=== PATIENT | female | born 1980 | race Two or more races ===

== ENCOUNTER → 2016-10-29 | Outpatient (REF) | payer OTHER ==
[~2016-10-29] MED LIST: TOPA1TAB PO
[2016-10-29 11:53] LABS: FREE T4 1.06 NG/DL (0.76-1.46)
== END ==
LOC: M SFHCLERA 08:16
PROVIDERS: ATTEND Family Medicine
DX: Z13.29 Encounter for screening for other suspected endocrine disorder (principal); Z13.1 Encounter for screening for diabetes mellitus; Z13.220 Encounter for screening for lipoid disorders

== ENCOUNTER → 2016-11-17 | Outpatient (CLI) | payer OTHER ==
--- NOTE | 2016-11-17 08:25 | REP ---
MRI BRAIN WITHOUT CONTRAST: HISTORY: Migraine headaches. There are no areas of abnormal signal intensity in the brain. There is no intraparenchymal hemorrhage, infarct, mass or midline shift. The ventricular system is normal in appearance. There is no extracerebral collection. The sinuses are clear. IMPRESSION: There is no intracranial lesion. Signed by Marcus Alvares MD 11/17/2016 08:30 A
== END ==
LOC: M RAD 06:44
PROVIDERS: ATTEND Family Medicine
DX: G43.009 Migraine without aura, not intractable, without status migrainosus (principal)

== ENCOUNTER → 2016-12-10 | Outpatient (CLI) | payer OTHER ==
--- NOTE | 2016-12-11 14:29 | REP ---
Clinical: Abnormal uterine bleeding. Technique: Transabdominal pelvic ultrasound followed by transvaginal examination for better evaluation of the endometrium and adnexa with color Doppler evaluation of the ovaries. Comparison: None. Findings: Bladder is unremarkable and measures 13.1 x 10.4 x 10.0 cm. Anteverted retroflexed uterus measures 8.7 x 5.1 x 6.3 cm. The myometrium appears heterogeneous but without focal abnormality identified. Endometrial complex measures 16 mm thickness and should be correlated with menstrual cycle. A 4.0 x 4.5 x 3.8 cm left adnexal mass with adjacent small amount of free fluid is appreciated and may reflect exophytic/subserosal fibroid versus true pelvic lesion. Bilateral ovaries are otherwise normal in appearance and vascularity without torsion. Left ovary measures 3.2 x 1.7 x 2.9 cm; venous flow noted. Right ovary measures 2.6 x 1.9 x 2.4 cm; RI = 0.36. Impression: 1. Homogeneously thickened endometrial complex may reflect hemorrhagic debris and possibly related to menstrual cycle. 2. 4.5 cm mass lesion in the left vanita pelvis separate from the normal appearing left ovary. Differential diagnosis includes exophytic left uterine fibroid versus true mass lesion. 3. In light of the above-mentioned findings follow-up examination in 4-6 weeks may be warranted. Signed by Calvin Dougherty MD 12/10/2016 09:35 P
== END ==
LOC: M LRY 13:47
PROVIDERS: ATTEND Family Medicine
DX: N93.9 Abnormal uterine and vaginal bleeding, unspecified (principal)

== ENCOUNTER → 2017-01-01 | Outpatient (CLI) | payer OTHER ==
--- NOTE | 2017-01-01 10:21 | REP ---
Pelvic ultrasound including transabdominal, endovaginal and Doppler ultrasound assessment: Comparison is a 2016. On the comparison study a mass-like density was identified separate from the ovary in the left adnexa. On this study today this same mass like density is identified measuring 3.8 x 2.8 x 3.1 cm (previously 4.0 x 4.5 x 3.8 cm). As previously. I cannot determine if this is a pelvic mass, separate from the ovary or a uterine fibroid by ultrasound. Therefore, I would recommend pelvic MRI for further evaluation of this pelvic mass. The uterus is anteverted and normal size measuring 4 x 4.6 x 6.3 cm. The endometrium is upper normal size measuring 80 mm thickness. And has a homogeneous echo pattern. The right ovary is normal size measuring 3.5 x 2.3 x 3.4 cm. There is no right ovarian mass or cyst. The left ovary is normal size measuring 3.4 x 2.8 x 2.7 cm. There is a 2.5 cm left ovarian cyst. The cyst demonstrates no Doppler color flow or Doppler waveforms with Doppler ultrasound. Balloon There is no free fluid in the pelvis. Impression: There is a mass-like density in the left adnexa, separate from the ovary, similar to the comparison ultrasound. By ultrasound we unable to determine whether this is a fibroid or pelvic mass of other etiology, similar to the prior study. Therefore, I would recommend pelvic MRI for further evaluation of this mass. Signed by Ken Hanley MD 01/01/2017 10:13 A
== END ==
LOC: M LRY 08:29
PROVIDERS: ATTEND Family Medicine
DX: D25.9 Leiomyoma of uterus, unspecified (principal)

== ENCOUNTER 2017-02-26 09:56 | Day surgery (SDC) | payer OTHER ==
[~2017-02-26] VITALS: Ht 166.4 cm; Wt 95.7 kg
[2017-02-26] MEDS ORDERED: LR 1,000 ML IV ONE ×2 (10:15→11:00)
[2017-02-26] MEDS ORDERED: CENTTAB36 PO (10:23)
[2017-02-26] MEDS ORDERED: SCOPOLAMINE 1.5 MG TRANSDERMAL As Ordered ONE (10:31)
[2017-02-26 10:41] LABS: MEAN CORPUSCULAR HEMOGLOBIN 29.7 pg (27.0-33.0); PLATELET COUNT, AUTOMATED 442 10^3/uL (150-450); RED CELL DISTRIBUTION WIDTH 12.9 % (11.5-14.5)
[2017-02-26] MEDS ORDERED: SCOPOLAMINE 1.5 MG TRANSDERMAL TOP ONE (11:00)
[2017-02-26 11:06] LABS: CONTROL LINE HCG INT CTR LINE PRESENT
[2017-02-26] MEDS ORDERED: ROCURONIUM BROMIDE 50 MG/5 ML VIAL/SYRINGE As Ordered ONE ×2 (11:25→13:53)
[2017-02-26] MEDS ORDERED: PROPOFOL 200 MG/20 ML VIAL As Ordered ONE (11:25)
[2017-02-26] MEDS ORDERED: LIDOCAINE 2% INJ 100 MG/5 ML SDV (FOR ANES.) As Ordered ONE (11:25)
[2017-02-26] MEDS ORDERED: fentaNYL 250 MCG/5 ML INJECTION (J3010) As Ordered ONE (11:25)
[2017-02-26] MEDS ORDERED: MIDAZOLAM INJ 2 MG/2 ML VIAL (J2250) As Ordered ONE (11:26)
[2017-02-26] MEDS ORDERED: BUPIVACAINE HCL 0.25% 30 ML VIAL As Ordered ONE (11:56)
[2017-02-26] MEDS ORDERED: METHYLENE BLUE 0.5% (5MG/ML) 10 ML AMP (PROVAYBLUE)(Q9968 PER 1MG) As Ordered ONE (11:56)
[2017-02-26] MEDS ORDERED: dexameTHASONE 4 MG/ML 1ML VIAL (J1100) As Ordered ONE (12:00)
[2017-02-26] MEDS ORDERED: NEOSTIGMINE 10 MG/10 ML VIAL (J2710) As Ordered ONE (12:23)
[2017-02-26] MEDS ORDERED: GLYCOPYRROLATE INJ 0.2 MG/ML 2 ML VIAL As Ordered ONE (12:23)
[2017-02-26] MEDS ORDERED: ONDANSETRON 4MG/2ML VIAL (J2405) As Ordered ONE (12:23)
[2017-02-26] MEDS ORDERED: HYDROmorphone HCL 2 MG/ML 1ML VIAL (J1170) As Ordered ONE (12:23)
[2017-02-26] MEDS ORDERED: ePHEDrine SULFATE 25 MG/5 ML(5MG/ML) SYRINGE As Ordered ONE (12:38)
[2017-02-26] MEDS ORDERED: SUCCINYLCHOLINE 100 MG/5 ML SYRINGE (J0330) As Ordered ONE (13:49)
[2017-02-26] MEDS ORDERED: LR 1,000 ML IV SCH ×2 (14:30→14:45)
[2017-02-26] MEDS ORDERED: ONDANSETRON 4MG/2ML VIAL (J2405) IV PRN (14:45)
[2017-02-26] MEDS: MEPERIDINE INJ 25 MG/ML VIAL (J2175) IV PRN ×2 (14:50→14:55)
[2017-02-26] MEDS: PERCOCET 5MG/325MG TAB PO PRN ×2 (14:55→15:25)
[2017-02-26] MEDS: fentaNYL 100 MCG/2 ML INJECTION (J3010) IV PRN ×4 (15:00→15:15)
[2017-02-26] MEDS ORDERED: ceFAZolin 1GM INJ (J0690) As Ordered ONE (15:09)
[2017-02-26 16:35] VITALS: BP 124/64
--- NOTE | 2017-02-26 19:01 | RO ---
DATE OF PROCEDURE: 02/26/2017 PREOPERATIVE DIAGNOSES: 1. Abnormal uterine bleeding. 2. Chronic pelvic pain, predominantly left side. 3. Infertility. 4. Pelvic mass on the left side approximately 4 cm per pelvic ultrasound. POSTOPERATIVE DIAGNOSES: 1. Abnormal uterine bleeding. 2. Chronic pelvic predominantly left side. 3. Infertility. 4. Pelvic mass on the left side approximately 4 cm per pelvic ultrasound. (Subserosal pedunculated leiomyoma.) PROCEDURE PERFORMED: 1. Laparoscopic myomectomy. 2. Diagnostic hysteroscopy, dilation and curettage (D and C). 3. Chromopertubation. SURGEON: Dr. Kostas Gurrola DO ART PSYCHOTHERAPIST: Dr. Katharina Arreola MD ANESTHESIA: General endotracheal. SPECIMENS TO PATHOLOGY: 1. Uterine leiomyomas, 4 cm and less than 1 cm in greatest dimension. 2. Endometrial curettings. ESTIMATED BLOOD LOSS: 20 mL. FLUIDS REPLACED: 2500 mL of lactated Ringer's. DRAINS: Spaulding catheter. URINE OUTPUT: 300 mL. COMPLICATIONS: None. PREOPERATIVE ANTIBIOTICS: None indicated. INTRAOPERATIVE FINDINGS: Left subserosal pedunculated fibroid located on the left side of the uterine fundus, approximately 4 cm in greatest dimension. The pedunculated stalk was less than 1 cm thick. Hysteroscopic findings revealed a normal endometrial cavity without any space-occupying masses. No fill and spill with the chromopertubation; however, this might have been due to a malfunction of the ZUMI uterine manipulator's catheter. INDICATION: The patient is a 36-year-old with infertility, chronic pelvic pain and abnormal uterine bleeding. She was counseled regarding the planned procedure, which is an operative laparoscopy for suspected left-sided pelvic mass per ultrasound, a diagnostic hysteroscopy and a chromopertubation to assess the status of the fallopian tubes. DESCRIPTION OF PROCEDURE: The patient was counseled and consented on the risks, benefits, indications and alternatives of the procedure. Informed consent was obtained. She was taken to the operating room with an IV running, and placed on the operating table in the dorsal supine position. General anesthesia was administered, and the airway secured without any difficulty. She was placed in the low lithotomy position. She was prepared and draped in the normal sterile fashion. A time-out was performed per protocol. Spaulding catheter was placed under sterile conditions. Sterile speculum placed with good visualization of the cervix. The anterior lip of the cervix was grasped with single-tooth tenaculum and downward traction was applied. The cervix was then sequentially dilated with Joey dilators. The ZUMI uterine manipulator was placed transcervically into the intrauterine cavity without any difficulty. Sterile speculum was removed. Attention was turned to the abdomen after glove switch. A 10 mm umbilical incision was made was the #11 blade after injection of the 0.25% Marcaine. Through this incision, the Veress needle was placed into the intraperitoneal cavity. Intraperitoneal cavity was confirmed with ease of flow of normal saline , negative return on aspiration and a positive drop test. The opening pressure was 7 mmHg. The abdomen was insufflated with 2 liters of gas. The Veress needle was removed. The size 10 Xcel laparoscopic trocar was placed under direct visualization with successful placement in the intraperitoneal cavity. No incidental bleeding or injury was noted. The patient was then placed into steep Trendelenburg. Two additional laparoscopic port sites were placed, each in the lower quadrant of the right and left abdomen, each approximately 5 mm incisions. Through these 5 mm incisions, the Xcel laparoscopic trocars were placed under direct visualization without any difficulty. Inspection of the abdomen was performed with the findings noted above. The dominant pedunculated mass was also attached to a smaller subcentimeter leiomyoma, which was also just lateral to the stalk of the larger mass. The LigaSure device was used to come across the stalk. It was sequentially clamped, coagulated and transected. Excellent hemostasis was noted , and the mass was removed in its entirety and intact. The smaller 1 cm fibroid just lateral to this mass was grasped and elevated, and the stalk was clamped, coagulated and transected. The smaller mass was brought through the 5 mm laparoscopic port and sent to pathology for final review. The larger mass placed in the anterior cul-de-sac. The 10 mL scope was traded out for a 5 mm scope, which was placed on the right side. The EndoCatch bag was placed into the intraperitoneal cavity and the EndoCatch bag was used to collect the specimen. The specimen was brought to the level of the umbilical incision. The umbilical incision was extended approximately 1 cm given the size of this mass. The mass was then brought to the surface with the EndoCatch bag, and the mass was slightly cored, just enough to bring the mass through the umbilical incision. The bag was used to prevent any seeding. After removal of the mass, the fascia of the umbilical incision was closed with #0 Vicryl in a running fashion. The fascial incision was noted be completely closed. The abdomen was then insufflated with gas. The surgical site was inspected and noted to be hemostatic. At this point , the decision was made to proceed with the hysteroscopic portion of the case. Attention was then turned to the pelvis. The ZUMI uterine manipulator was removed. The sterile speculum was placed with good visualization of the cervix. The single-tooth tenaculum on the anterior lip of the cervix was used to apply downward traction. The hysteroscope was placed transcervically into the intrauterine cavity with the findings noted above. Given the lack of findings, the hysteroscope was removed. The ZUMI uterine manipulator was then placed once again, a glove switch was performed and attempt at chromopertubation was performed. With the chromopertubation, resistance was met with attempt at injecting fluid. There was lack of tubal fill and spill with chromopertubation; however, I am not yet ready to call her tubal factor infertility because I think the ZUMI uterine manipulator might have malfunctioned. That combined with any uterine contraction or pressure or tubal spasm may have contributed to the lack of fill and spill. This issue will be followed up with an outpatient hysterosalpingogram (HSG). The surgical site was once again inspected and noted to be hemostatic. To maintain and ensure hemostasis, Laina was placed over the surgical site. After placement of the Laina, gas was released from the abdomen. The trocars were removed. The skin incisions were closed with #0 Monocryl in a subcuticular fashion and reinforced with Dermabond. Attention was turned back to the vagina. The ZUMI uterine manipulator was removed from the uterus. The single-tooth tenaculum was removed. The tenaculum sites were noted be hemostatic. All instruments were removed from the vagina. Sponge, lap, needle and instrument counts were all correct. The patient tolerated the entire procedure very well, and she was transferred to the post-anesthesia care unit (PACU) in good and stable condition. SHWETA
== END 2017-02-26 17:25 | disposition home or self-care (01) ==
LOC: M SDC 09:56
PROVIDERS: ATTEND Obstetrics & Gynecology
DX: N93.9 Abnormal uterine and vaginal bleeding, unspecified (principal); R10.2 Pelvic and perineal pain; N97.9 Female infertility, unspecified; D25.2 Subserosal leiomyoma of uterus; N85.00 Endometrial hyperplasia, unspecified; E66.9 Obesity, unspecified; Z68.35 Body mass index [BMI] 35.0-35.9, adult; G43.909 Migraine, unspecified, not intractable, without status migrainosus; R29.898 Other symptoms and signs involving the musculoskeletal system; Z79.899 Other long term (current) drug therapy; Z87.59 Personal history of other complications of pregnancy, childbirth and the puerperium
CPT/HCPCS: 36415; 58350; 58545; 58558; 84703; 85027; 86850; 86900; 86901; 88304; 88305; A6024; J0330; J0690; J1100; J1170; J2175; J2250; J2405; J2710; J3010; Q9968

== ENCOUNTER 2017-05-29 15:05 | Emergency (ER) | payer OTHER ==
[2017-05-29 16:19] LABS: CONTROL LINE HCG INT CTR LINE PRESENT; HCG, SERUM QUALITATIVE NEGATIVE (NEGATIVE)
[2017-05-29] MEDS: NS 1,000 ML IV (16:19)
[2017-05-29] MEDS: diphenhydrAMINE INJ 50MG/ML VIAL (J1200) IV (16:19)
[2017-05-29] MEDS: METOCLOPRAMIDE INJ 10MG/2ML VIAL (J2765) IV (16:20)
[2017-05-29] MEDS: KETOROLAC 30 MG/ML VIAL (J1885) IV (18:32)
== END 2017-05-29 19:45 | disposition home or self-care (01) ==
LOC: M ED 15:05
DX: S06.0X9A Concussion with loss of consciousness of unspecified duration, initial encounter (principal); W00.9XXA Unspecified fall due to ice and snow, initial encounter; Y92.828 Other wilderness area as the place of occurrence of the external cause; Y93.23 Activity, snow (alpine) (downhill) skiing, snowboarding, sledding, tobogganing and snow tubing; G43.909 Migraine, unspecified, not intractable, without status migrainosus; Z79.899 Other long term (current) drug therapy
CPT/HCPCS: J1200

== ENCOUNTER → 2017-06-29 | Outpatient (REF) | payer OTHER | LOC: M SFHCLERA 13:13 | DX: J02.9 Acute pharyngitis, unspecified (principal) ==

== ENCOUNTER → 2017-10-18 | Outpatient (CLI) | payer OTHER ==
[2017-10-18 18:06] LABS: BASO % 0.3 % (0.0-1.0); EOS # 0.1 10^3/uL (0.0-0.50); EOS % 0.4 % (0.0-3.0); HEMATOCRIT 36.6 % (36.0-47.0); HEMOGLOBIN 12.1 g/dl (12.0-15.5); IMMATURE GRANULOCYTE % 0.3 % (0-3.0); LYMPH # 1.9 10^3/uL (1.5-4.5); LYMPH % 15.8 % (24.0-44.0); MEAN CORPUSCULAR HEMOGLOBIN 29.5 pg (27.0-33.0); MEAN CORPUSCULAR HGB CONC 33.1 g/dl (32.0-36.5); MEAN CORPUSCULAR VOLUME 89.3 fl (80.0-96.0); MONO # 0.6 10^3/uL (0.0-0.8); MONO % 5.2 % (0.0-5.0); NEUTROPHILS # 9.2 10^3/uL (1.8-7.7); PLATELET COUNT, AUTOMATED 423 10^3/uL (150-450); RED CELL DISTRIBUTION WIDTH 13.2 % (11.5-14.5); WHITE BLOOD COUNT 11.8 10^3/uL (4.0-10.0)
[2017-10-20 11:47] LABS: RUBELLA IgG QUALITATIVE IMMUNE (IMMUNE)
[2017-10-20 11:50] LABS: HBsAg Prenatal NEGATIVE (NEGATIVE)
[2017-10-20 12:15] LABS: HEPATITIS C VIRUS ABY INDEX 0.1 INDEX (<0.8)
[2017-10-20 12:16] LABS: HIV 1&2 SCREEN CENTAUR NEGATIVE (NEGATIVE)
== END ==
LOC: M SMT 15:04
DX: Z34.81 Encounter for supervision of other normal pregnancy, first trimester (principal); Z3A.01 Less than 8 weeks gestation of pregnancy
CPT/HCPCS: 86762

== ENCOUNTER → 2017-11-22 | Outpatient (REF) | payer OTHER ==
[2017-11-22 22:13] LABS: CHLAMYDIA DNA AMPLIFICATION NEGATIVE (NEGATIVE); GC DNA AMPLIFICATION NEGATIVE (NEGATIVE)
== END ==
LOC: M LAB REF 17:20
DX: Z34.81 Encounter for supervision of other normal pregnancy, first trimester (principal); Z3A.00 Weeks of gestation of pregnancy not specified

== ENCOUNTER → 2018-01-04 | Outpatient (CLI) | payer OTHER | LOC: M RAD 08:17 | DX: O28.4 Abnormal radiological finding on antenatal screening of mother (principal); Z36.89 Encounter for other specified antenatal screening; Z3A.18 18 weeks gestation of pregnancy | CPT/HCPCS: 76811 ==

== ENCOUNTER → 2018-05-05 | Outpatient (REF) | payer OTHER ==
[~2018-05-05] MED LIST changes: +CENTTAB36 PO; +LETR2.5T2
== END ==
LOC: M SFHCLERA 09:02
PROVIDERS: ATTEND Family Medicine
DX: L91.8 Other hypertrophic disorders of the skin (principal)

== ENCOUNTER → 2018-05-18 | Outpatient (REF) | payer OTHER | LOC: M SFHCLERA 12:07 | PROVIDERS: ATTEND Family Medicine | DX: Z3A.01 Less than 8 weeks gestation of pregnancy (principal) ==

== ENCOUNTER → 2018-05-20 | Outpatient (REF) | payer OTHER | LOC: M SFHCLERA 11:11 | PROVIDERS: ATTEND Family Medicine | DX: Z3A.01 Less than 8 weeks gestation of pregnancy (principal) ==

== ENCOUNTER → 2018-05-26 | Outpatient (CLI) | payer OTHER ==
--- NOTE | 2018-05-26 14:16 | REP ---
FIRST TRIMESTER ULTRASOUND: Real-time sonographic evaluation of the pelvis was performed utilizing transabdominal and endovaginal technique. There is a single living intrauterine gestation. The estimated gestational age is 6 weeks 4 days based on a crown rump length of 7 mm. EDC 01/15/2019. heart rate 126 beats per minute. There is no subchronic hemorrhage. No maternal adnexal region abnormalities are seen. A posterior uterine fibroid is seen measuring about 1.3 cm in maximum diameter. A fundal fibroid measures 1.8 cm in maximum diameter. Electronically Signed by Ken Voss MD 05/27/2018 10:21 A
== END ==
LOC: M LRY 07:58
PROVIDERS: ATTEND Family Medicine
DX: Z36.89 Encounter for other specified antenatal screening (principal); Z3A.01 Less than 8 weeks gestation of pregnancy

== ENCOUNTER → 2018-06-16 | Outpatient (CLI) | payer OTHER ==
[2018-06-16 18:48] LABS: GLUCOSE CHALLENGE TEST 1 HOUR 150 MG/DL (LESS THAN 140)
[2018-06-16 18:50] LABS: BASO % 0.4 % (0.0-1.0); EOS % 0.2 % (0.0-3.0); HEMATOCRIT 37.1 % (36.0-47.0); HEMOGLOBIN 12.3 g/dl (12.0-15.5); LYMPH # 1.9 10^3/uL (1.5-4.5); LYMPH % 23.2 % (24.0-44.0); MEAN CORPUSCULAR HEMOGLOBIN 30.9 pg (27.0-33.0); MEAN CORPUSCULAR HGB CONC 33.2 g/dl (32.0-36.5); MEAN CORPUSCULAR VOLUME 93.2 fl (80.0-96.0); MONO # 0.4 10^3/uL (0.0-0.8); MONO % 4.7 % (0.0-5.0); NEUTROPHILS # 5.9 10^3/uL (1.8-7.7); NEUTROPHILS % 71.1 % (36.0-66.0); PLATELET COUNT, AUTOMATED 387 10^3/uL (150-450); RED BLOOD COUNT 3.98 10^6/uL (4.00-5.40); WHITE BLOOD COUNT 8.3 10^3/uL (4.0-10.0)
[2018-06-16 19:57] LABS: HEMOGLOBIN A1c 5.2 %
[2018-06-16 23:24] LABS: CHLAMYDIA DNA AMPLIFICATION NEGATIVE (NEGATIVE); GC DNA AMPLIFICATION NEGATIVE (NEGATIVE)
[2018-06-17 10:41] LABS: RUBELLA IgG QUALITATIVE IMMUNE (IMMUNE)
[2018-06-17 11:10] LABS: HEPATITIS C VIRUS ABY INDEX < 0.0 INDEX (<0.8)
[2018-06-17 11:23] LABS: HIV 1&2 SCREEN CENTAUR NEGATIVE (NEGATIVE)
== END ==
LOC: M SMT 13:34
PROVIDERS: ATTEND Obstetrics & Gynecology
DX: Z36.89 Encounter for other specified antenatal screening (principal)

== ENCOUNTER → 2018-06-21 | Outpatient (CLI) | payer OTHER | LOC: M SMT 10:18 | PROVIDERS: ATTEND Obstetrics & Gynecology | DX: Z82.79 Family history of other congenital malformations, deformations and chromosomal abnormalities (principal); O09.511 Supervision of elderly primigravida, first trimester; Z3A.00 Weeks of gestation of pregnancy not specified ==

== ENCOUNTER → 2018-06-29 | Outpatient (CLI) | payer OTHER | LOC: M LAB 07:41 | PROVIDERS: ATTEND Obstetrics & Gynecology | DX: O09.521 Supervision of elderly multigravida, first trimester (principal) ==

== ENCOUNTER → 2018-08-16 | Outpatient (CLI) | payer OTHER ==
--- NOTE | 2018-08-17 04:29 | REP ---
Clinical: Anatomical evaluation. Comparison: 05/26/2018 . Findings: Examination demonstrates a single live intrauterine in cephalic presentation. motion is identified by technologist. Placenta is noted posterior and grade grade zero without evidence for placenta previa or abruption. Amniotic fluid volume is normal. Cervix measures 5.7 cm in length and appears closed. No evidence for nuchal cord. Incidental intramural fibroid measures 2.1 cm maximal diameter. Gestational age by LMP 18 weeks 2 days with CHAIM 01/15/1990 . Gestational age by current measurements 18 weeks 5-day with CHAIM 01/12/2019 . FHR equals 152 beats per minute. BPD 4.2 cm 18 weeks 4 days HC 15.3 cm 18 weeks 2 days AC 13.4 cm 18 weeks 6 days FL 2.9 cm 18 weeks 5 days HL 2.8 cm 18 weeks 6 days HC/AC ratio 1.14 Estimated weight 256 grams ( 65th percentile). Anatomical assessment demonstrates normal structures including cranium, choroid plexus, cavum, cerebellum/posterior fossa, lungs, diaphragm, stomach, cord insertion/three-vessel cord, kidneys/bladder, spine, and extremities. Impression: 1. Single live intrauterine in cephalic presentation demonstrating appropriate interval growth. 2. 2 cm intramural fibroid. 3. Anatomical limitations include incomplete evaluation of the face and heart/ventricular outflow tracts which may warrant reevaluation and follow-up. Electronically Signed by Calvin Dougherty MD 08/17/2018 04:21 A
== END ==
LOC: M RAD 10:58
PROVIDERS: ATTEND Obstetrics & Gynecology
DX: O09.522 Supervision of elderly multigravida, second trimester (principal); Z3A.18 18 weeks gestation of pregnancy

== ENCOUNTER → 2018-09-01 | Outpatient (CLI) | payer OTHER ==
--- NOTE | 2018-09-01 11:00 | REP ---
Clinical: Anatomical evaluation. Comparison: 08/16/2018 . Findings: Examination demonstrates a single live intrauterine in cephalic presentation. motion is identified by technologist. Placenta is noted posterior and grade grade 1 without evidence for placenta previa or abruption. Amniotic fluid volume is normal. Cervix measures 7.0 cm in length and appears closed. No evidence for nuchal cord. 2.2 cm uterine fibroid again noted. Gestational age by LMP 20 weeks 4 days with CHAIM 01/15/2019 . Gestational age by current measurements 21 weeks 3 days with CHAIM 01/09/2019 . FHR equals 163 beats per minute. Estimated weight 430 grams ( 79th percentile). Anatomical assessment demonstrates normal structures including cranium, choroid plexus, cavum, cerebellum/posterior fossa, facial features, lungs, four-chamber heart/ventricular outflow tracts, diaphragm, stomach, cord insertion/three-vessel cord, kidneys/bladder, spine, and extremities. Impression: 1. Single live intrauterine in cephalic presentation demonstrating appropriate interval growth. 2. Anatomical assessment is complete and normal. 3. 2.2 cm uterine fibroid. Electronically Signed by Calvin Dougherty MD 09/01/2018 10:48 A
== END ==
LOC: M RAD 09:32
PROVIDERS: ATTEND Obstetrics & Gynecology
DX: O09.522 Supervision of elderly multigravida, second trimester (principal); Z3A.20 20 weeks gestation of pregnancy; O34.12 Maternal care for benign tumor of corpus uteri, second trimester; D25.9 Leiomyoma of uterus, unspecified

== ENCOUNTER → 2018-10-14 | Outpatient (CLI) | payer OTHER | LOC: M SMT 13:04 | PROVIDERS: ATTEND Obstetrics & Gynecology | DX: Z34.82 Encounter for supervision of other normal pregnancy, second trimester (principal) ==

== ENCOUNTER → 2018-10-19 | Outpatient (REF) | payer OTHER ==
[2018-10-19 19:14] LABS: HEMATOCRIT 34.5 % (36.0-47.0); HEMOGLOBIN 11.1 g/dl (12.0-15.5); MEAN CORPUSCULAR HEMOGLOBIN 31.4 pg (27.0-33.0); MEAN CORPUSCULAR HGB CONC 32.2 g/dl (32.0-36.5); MEAN CORPUSCULAR VOLUME 97.7 fl (80.0-96.0); PLATELET COUNT, AUTOMATED 386 10^3/uL (150-450); RED BLOOD COUNT 3.53 10^6/uL (4.00-5.40); WHITE BLOOD COUNT 8.7 10^3/uL (4.0-10.0)
[2018-10-19 19:36] LABS: HEMOGLOBIN A1c 5.4 %
== END ==
LOC: M LABSMT 18:06
PROVIDERS: ATTEND Obstetrics & Gynecology
DX: Z34.82 Encounter for supervision of other normal pregnancy, second trimester (principal)

== ENCOUNTER → 2018-11-22 | Outpatient (CLI) | payer OTHER ==
--- NOTE | 2018-11-22 16:42 | REP ---
Obstetric sonography: History: Supervision of . growth study. Findings: Scanning through the gravid uterus demonstrates a viable single intrauterine gestation in a cephalic lie. motion is observed and heart rate is recorded at 150 beats per minute. A posterior grade 1 to 2 placenta is seen without evidence of previa or abruption. Amniotic fluid is subjectively normal. No extrauterine abnormalities observed. There has been appropriate interval growth. The umbilical cord is seen draping over the neck. The following anatomic structures are identified again and felt to be unremarkable: cranium, cavum, face and profile, lungs, left-sided stomach, abdominal wall cord insertion, three-vessel cord, kidneys and bladder. Biometry chart: BPD 8.4 cm 33 weeks 5 days head circumference 31.1 cm 34 weeks 5 days abdominal circumference 31.4 cm 35 weeks 2 days Femur length 6.8 cm 35 weeks 1 day Humeral length 6.0 cm 35 weeks 0 days HC/AC ratio normal 0.99, cephalic index normal 0.75 estimated weight 2572 grams, 5 pounds 10 ounces, greater 97 percentile for 32 weeks 2 days. Impression: Viable single intrauterine gestation at 34 weeks 5 days by today's composite sonographic criteria for expected gestational age estimate based on prior sonography is 32 weeks 2 days. CHAIM by prior sonography January 15, 2019. Estimated weight is greater than 97 percentile for 32 weeks 2 days. Electronically Signed by Giuliano Chase MD 11/22/2018 07:35 P
== END ==
LOC: M RAD 10:04
PROVIDERS: ATTEND Obstetrics & Gynecology
DX: O09.523 Supervision of elderly multigravida, third trimester (principal); O24.415 Gestational diabetes mellitus in pregnancy, controlled by oral hypoglycemic drugs

== ENCOUNTER → 2018-12-14 | Outpatient (CLI) | payer OTHER ==
[~2018-12-14] MED LIST changes: +ACET325C5 PO; +METF500T13 PO; +PREN1CHW PO; +RANI1TAB38 PO
--- NOTE | 2018-12-14 12:13 | REP ---
Clinical: Anatomical evaluation. Comparison: 11/22/2018 . Findings: Examination demonstrates a single live intrauterine in cephalic presentation. motion is identified by technologist. Placenta is noted posterior and grade one without evidence for placenta previa or abruption. Amniotic fluid volume is normal. Gestational age by LMP 35 weeks 3 days with CHAIM 01/15/2019 . Gestational age by current measurements 37 weeks 0 days with CHAIM 01/04/2019 . FHR equals 140 beats per minute. BPD 9.2 cm 37 weeks 3 days HC 32.1 cm 36 weeks 2 days AC 36.1 cm 40 weeks 0 days (greater than 95 percentile) FL 6.7 cm 34 weeks 3 days HC/AC ratio 0.89 Estimated weight 3390 grams (greater than 97 percentile based on age by LMP and first ultrasound) Amniotic fluid index: 12.7 cm (7.8 - 24.9) Umbilical cord SD ratio: 2.50 (2.00 - 3.00). Impression: Single live advanced gestation in cephalic presentation demonstrating greater than expected interval growth when compared to LMP. Electronically Signed by Calvin Dougherty MD 12/14/2018 12:04 P
== END ==
LOC: M RAD 10:58
PROVIDERS: ATTEND Advanced Practice Midwife
DX: O24.415 Gestational diabetes mellitus in pregnancy, controlled by oral hypoglycemic drugs (principal); Z3A.37 37 weeks gestation of pregnancy

== ENCOUNTER → 2018-12-19 | Outpatient (REF) | payer OTHER ==
[~2018-12-19] MED LIST changes: +COLA100C5 PO; +IBUP80TA PO; +PERCOCET PO
== END ==
LOC: M LAB REF 18:10
PROVIDERS: ATTEND Obstetrics & Gynecology
DX: O24.415 Gestational diabetes mellitus in pregnancy, controlled by oral hypoglycemic drugs (principal)

== ENCOUNTER 2018-12-27 05:21 | Inpatient (IN) | payer OTHER ==
[~2018-12-27] VITALS: Ht 167.6 cm; Wt 102.4 kg
[2018-12-27] VITALS (7 sets, daily range): BP systolic 100–127; BP diastolic 56–66
[~2018-12-27 05:21] MED LIST changes: -COLA100C5 PO; -IBUP80TA PO; -PERCOCET PO
[2018-12-27] MEDS ORDERED: BICITRA 30ML SOLN UDC PO ONE (05:45)
[2018-12-27] MEDS ORDERED: LR 1,000 ML IV ONE ×2 (05:45→20:30)
[2018-12-27 06:32] LABS: HEMATOCRIT 33.8 % (36.0-47.0); HEMOGLOBIN 11.1 g/dl (12.0-15.5); MEAN CORPUSCULAR HEMOGLOBIN 30.7 pg (27.0-33.0); MEAN CORPUSCULAR HGB CONC 32.8 g/dl (32.0-36.5); MEAN CORPUSCULAR VOLUME 93.4 fl (80.0-96.0); PLATELET COUNT, AUTOMATED 323 10^3/uL (150-450); RED BLOOD COUNT 3.62 10^6/uL (4.00-5.40); WHITE BLOOD COUNT 7.9 10^3/uL (4.0-10.0)
[2018-12-27] MEDS ORDERED: LR 1,000 ML IV SCH ×2 (06:45→18:15)
[2018-12-27] MEDS ORDERED: ONDANSETRON 4MG/2ML VIAL (J2405) IV PRN ×3 (07:45→09:30)
[2018-12-27] MEDS ORDERED: NALOXONE INJ 0.4 MG/1 ML VIAL (J2310) IV PRN ×2 (07:45)
[2018-12-27] MEDS ORDERED: diphenhydrAMINE INJ 50MG/ML VIAL (J1200) IV PRN (07:45)
[2018-12-27] MEDS ORDERED: NALBUPHINE HCL 10 MG/ML AMP (J2300) IV PRN ×2 (07:45→09:30)
[2018-12-27] MEDS ORDERED: OXYTOCIN INJ 10 UNITS/ML VIAL (J2590) As Ordered ONE ×2 (07:49→08:20)
[2018-12-27] MEDS ORDERED: ONDANSETRON 4MG/2ML VIAL (J2405) As Ordered ONE ×2 (07:49→10:55)
[2018-12-27] MEDS ORDERED: KETOROLAC 60 MG/2 ML VIAL (J1885) As Ordered ONE (07:49)
[2018-12-27] MEDS ORDERED: MORPHINE PRES-FREE INJ 10 MG/10 ML VIAL (J2274) As Ordered ONE (07:50)
[2018-12-27] MEDS ORDERED: ePHEDrine SULFATE 25 MG/5 ML(5MG/ML) SYRINGE As Ordered ONE (07:51)
[2018-12-27] MEDS ORDERED: dexameTHASONE 4 MG/ML 1ML VIAL (J1100) As Ordered ONE (08:33)
[2018-12-27] MEDS ORDERED: METOCLOPRAMIDE INJ 10MG/2ML VIAL (J2765) As Ordered ONE (08:33)
[2018-12-27] MEDS ORDERED: OXYTOCIN DRIP 30 UNITS in APPROPRIATE DILUENT 1 EA IV SCH (08:55)
[2018-12-27] MEDS ORDERED: RHOGAM 300 MCG (1500 IU) INJ (J2790) IM SCH (09:00)
[2018-12-27] MEDS ORDERED: METHYLERGONOVINE MALEATE 0.2 MG TAB PO PRN (09:00)
[2018-12-27] MEDS ORDERED: DOCUSATE SODIUM 100 MG CAP PO PRN (09:00)
[2018-12-27] MEDS ORDERED: MEASLES,MUMPS,RUBELLA VACCINE INJ (MMR-II) (90707) SC SCH (09:00)
[2018-12-27] MEDS: PRENATAL VITAMINS CHEWABLE TABLET PO SCH (09:00)
[2018-12-27] MEDS ORDERED: PERCOCET 5MG/325MG TAB PO PRN (09:30)
[2018-12-27] MEDS ORDERED: fentaNYL 100 MCG/2 ML INJECTION (J3010) IV PRN (09:30)
[2018-12-27] MEDS ORDERED: HYDROMORPHONE HCL 0.5 MG/ 0.5 ML SYRINGE (J1170 PER 1) IV PRN (09:30)
[2018-12-27] MEDS ORDERED: MEPERIDINE INJ 25 MG/ML VIAL (J2175) IV PRN (09:30)
[2018-12-27] MEDS ORDERED: OXYTOCIN 30 UNITS IN 0.9% NaCl 500ML IV BAG (J2590) As Ordered ONE (09:31)
[2018-12-27] MEDS: METOCLOPRAMIDE INJ 10MG/2ML VIAL (J2765) IV PRN ×2 (12:00→18:31)
[2018-12-27] MEDS: KETOROLAC 30 MG/ML VIAL (J1885) IV SCH ×2 (14:07→19:55)
[2018-12-28] MEDS: KETOROLAC 30 MG/ML VIAL (J1885) IV SCH (02:45)
[2018-12-28 02:50] VITALS: BP 103/64
[2018-12-28] MEDS: PERCOCET 5MG/325MG TAB PO PRN ×2 (05:57→17:40)
[2018-12-28 05:58] VITALS: BP 109/62
[2018-12-28] MEDS: PRENATAL VITAMINS CHEWABLE TABLET PO SCH (08:02)
[2018-12-28] MEDS ORDERED: COLA100C5 PO (08:11)
[2018-12-28] MEDS ORDERED: IBUP80TA PO (08:11)
[2018-12-28] MEDS ORDERED: PERCOCET PO (08:11)
[2018-12-28] MEDS ORDERED: metFORMIN (GLUCOPHAGE) 1000 MG TABLET PO SCH (09:00)
[2018-12-28] MEDS ORDERED: ADACEL/BOOSTRIX VACCINE (DIPHTH/PERTUSS/ACELL/TETANUS)0.5ML SYR (90715) IM ONE (09:00)
[2018-12-28] MEDS ORDERED: INFLUENZA QUADRIVALENT PF VACCINE 0.5ML SYRINGE (90686) IM ONE (09:00)
[2018-12-28 09:10] LABS: HEMATOCRIT 28.5 % (36.0-47.0); HEMOGLOBIN 9.2 g/dl (12.0-15.5); MEAN CORPUSCULAR HEMOGLOBIN 31.8 pg (27.0-33.0); MEAN CORPUSCULAR HGB CONC 32.3 g/dl (32.0-36.5); MEAN CORPUSCULAR VOLUME 98.6 fl (80.0-96.0); PLATELET COUNT, AUTOMATED 274 10^3/uL (150-450); RED BLOOD COUNT 2.89 10^6/uL (4.00-5.40); WHITE BLOOD COUNT 8.4 10^3/uL (4.0-10.0)
[2018-12-28 10:22] VITALS: BP 106/57
[2018-12-28] MEDS: IBUPROFEN 800 MG TAB PO SCH ×2 (10:25→18:17)
[2018-12-28] MEDS ORDERED: METF500T13 PO (10:43)
[2018-12-28] MEDS: metFORMIN (GLUCOPHAGE) 500 MG TAB PO SCH ×2 (11:29→18:17)
[2018-12-28 14:03] VITALS: BP 109/52
[2018-12-28 22:20] VITALS: BP 116/58
[2018-12-29] MEDS: PERCOCET 5MG/325MG TAB PO PRN ×5 (00:56→23:53)
[2018-12-29] MEDS: IBUPROFEN 800 MG TAB PO SCH ×3 (02:31→17:56)
[2018-12-29 05:44] VITALS: BP 116/68
--- NOTE | 2018-12-29 07:30 | IPNPDOC ---
Text Note Date of Service The patient was seen on 12/29/18. NOTE Note POD#2 s/p scheduled PLTCS S: Pain well controlled, ambulating without difficulty, tolerating regular diet, voiding spontaneously, lochia decreasing/minimal. No headache, sob, chest pain, nausea/vomiting/fevers/chills. O: Normotensive, normal HR, afebrile ABD: soft, nontender, nondistended, fundus firm at U-2cm, dressing dry and intact Ext: no lower extremity edema bilaterally, negative Lisa's sign A/P: POD#2. Recovering well. Hemodynamically stable, afebrile, good pain control. Baby in NICU -Routine care -Anticipate d/c to home tomorrow. VS,Fishbone, I+O VS, Fishbone, I+O Laboratory Tests 12/28/18 08:51 Red Blood Count 2.89 L, Mean Corpuscular Volume 98.6 H, Mean Corpuscular Hemoglobin 31.8, Mean Corpuscular Hemoglobin Concent 32.3, Red Cell Distribution Width 15.6 H Vital Signs Date Time Temp Pulse Resp B/P (MAP) Pulse Ox O2 Delivery O2 Flow Rate FiO2 12/29/18 07:14 18 12/29/18 05:44 97.8 89 116/68 (84) 12/28/18 22:20 100 I&O- Last 24 Hours up to 6 AM 12/29/18 06:00 Output Total 500 ml Balance -500 ml GME ATTESTATION GME ATTESTATION My faculty preceptor for this patient encounter was physically present during the encounter and was fully available. All aspects of the patient interview, examination, medical decision making process, and medical care plan development were reviewed and approved by the faculty preceptor. The faculty preceptor is aware and concurs with the plan as stated in the body of this note and will attest to such by his/her cosignature. HOMER MARVIN DO Dec 29, 2018 07:30
[2018-12-29] MEDS: PRENATAL VITAMINS CHEWABLE TABLET PO SCH (08:14)
[2018-12-29] MEDS: metFORMIN (GLUCOPHAGE) 500 MG TAB PO SCH ×2 (08:15→17:56)
[2018-12-29] MEDS ORDERED: INFLUENZA QUADRIVALENT PF VACCINE 0.5ML SYRINGE (90686) IM ONE (09:00)
[2018-12-29 17:43] VITALS: BP 116/64
[2018-12-30] MEDS: IBUPROFEN 800 MG TAB PO SCH (02:30)
[2018-12-30] MEDS: PERCOCET 5MG/325MG TAB PO PRN ×2 (04:18→08:43)
[2018-12-30 05:52] VITALS: BP 116/68
[2018-12-30] MEDS: metFORMIN (GLUCOPHAGE) 500 MG TAB PO SCH (08:38)
[2018-12-30] MEDS: PRENATAL VITAMINS CHEWABLE TABLET PO SCH (08:38)
--- NOTE | 2018-12-30 18:00 | DSES ---
DATE OF ADMISSION: 12/27/2018 DATE OF DISCHARGE: 12/30/2018 DISCHARGE DIAGNOSES: 1. Primary low transverse section. 2. Satisfied parity. 3. History of myomectomy. 4. Polycystic ovarian syndrome. 5. Pregestational diabetes. PROCEDURES PERFORMED IN HOSPITAL 1. Primary low transverse section. 2. Richardson bilateral tubal ligation. 3. Spinal with Duramorph. HISTORY OF PRESENT ILLNESS: Elda is a 38-year-old 3, now para 1-0-2-1 at 37 plus 3 weeks estimated gestational age who presented to labor delivery for primary low transverse section and bilateral tubal ligation. She underwent an uncomplicated primary low transverse section productive of a live-born male infant. scores 8 and 9, weight 4700 grams, 10 pounds 6 ounces. Estimated blood loss was 700 mL. She did well postoperatively and by postoperative day #3 had met all discharge criteria. She was discharged home in stable condition. PHYSICAL EXAMINATION: On day of discharge, her vital signs are stable. She was afebrile. GENERAL APPEARANCE: Well appearing in no acute distress. ABDOMEN: Soft. Appropriately tender fundus that is firm below the umbilicus. INCISION: Dressing is dry and intact. EXTREMITIES: Negative for calf tenderness. DISCHARGE INSTRUCTIONS: 1. Pelvic rest for 6 weeks. 2. Remove dressing in 5-7 days. 3. Report severe pain, heavy vaginal bleeding, fever, or incisional issues. DISCHARGE MEDICATIONS: Ibuprofen and Percocet, Colace, metformin, vitamins. FOLLOWUP: [facility] in 2 weeks for incision check. My faculty preceptor for this patient encounter was physically present during the encounter and was fully available. All aspects of the patient interview, examination, medical decision making process, and medical care plan development were reviewed and approved by the faculty preceptor. The faculty preceptor is aware and concurs with the plan as stated in the body of this note and will attest to such by his/her co-signature.
== END 2018-12-30 09:08 | disposition home or self-care (01) | DRG 785 ==
LOC: M LDI 05:21 → M OBS 11:22
PROVIDERS: ADMIT Obstetrics & Gynecology; ATTEND Obstetrics & Gynecology
PROC: 0UB70ZZ Excision of Bilateral Fallopian Tubes, Open Approach (ICD-10-PCS; 2018-12-27)
PROC: 10D00Z1 Extraction of Products of Conception, Low, Open Approach (ICD-10-PCS; principal; 2018-12-27 07:30)
DX: O24.12 Pre-existing type 2 diabetes mellitus, in childbirth (principal); O34.13 Maternal care for benign tumor of corpus uteri, third trimester; Z3A.39 39 weeks gestation of pregnancy; D25.2 Subserosal leiomyoma of uterus; Z3A.37 37 weeks gestation of pregnancy; Z37.0 Single live birth; Z30.2 Encounter for sterilization; Z79.84 Long term (current) use of oral hypoglycemic drugs

== ENCOUNTER → 2019-04-17 | Outpatient (REF) | payer OTHER ==
[~2019-04-17] MED LIST changes: +COLA100C5 PO; +IBUP80TA PO; +PERCOCET PO
== END ==
LOC: M SFHCLERA 09:35
PROVIDERS: ATTEND Physician Assistant
DX: J02.9 Acute pharyngitis, unspecified (principal)

== ENCOUNTER → 2019-05-02 | Outpatient (REF) | payer OTHER ==
[2019-05-02 12:07] LABS: FREE T4 0.98 NG/DL (0.76-1.46); THYROID STIMULATING HORMONE 2.53 uIU/ML (0.358-3.740)
== END ==
LOC: M SFHCLERA 09:06
PROVIDERS: ATTEND Family Medicine
DX: L65.9 Nonscarring hair loss, unspecified (principal)
CPT/HCPCS: 84439; 84443; G0463